=== PATIENT | female | born 1965 | race Caucasian/White ===

== ENCOUNTER 2021-02-23 06:28 | Emergency (ER) | payer OTHER ==
[~2021-02-23] VITALS: Ht 162.6 cm; Wt 59.0 kg
[2021-02-23 07:24] LABS: ABSOLUTE NEUTROPHILS 10.1 thou/uL (1.4-8.2); BASOPHILS 0.6 % (0.0-2.0); EOSINOPHILS 0.7 % (0.0-3.0); HEMATOCRIT 40.3 % (37.0-47.0); LYMPHOCYTES 11.2 % (24.0-44.0); MCH 27.4 pg (26.0-34.0); MCHC 32.3 g/dL (28.0-37.0); MCV 84.7 fL (80.0-100.0); MONOCYTES 4.4 % (1.0-8.0); PLATELET COUNT 373 thou/uL (150-400); POLYS 83.1 % (36.0-66.0); RBC 4.76 mil/uL (4.20-5.00); RDW 15.1 % (10.5-14.5); WBC 12.2 thou/uL (4.0-11.0)
[2021-02-23 07:56] LABS: URINE BILIRUBIN NEGATIVE (Negative); URINE BLOOD 1+ (Negative); URINE CLARITY SL CLOUDY; URINE COLOR YELLOW; URINE GLUCOSE-RANDOM* NEGATIVE (Negative); URINE KETONES NEGATIVE (Negative); URINE LEUKOCYTES-REFLEX NEGATIVE (Negative); URINE NITRITE-REFLEX NEGATIVE (Negative); URINE PROTEIN (DIPSTICK) NEGATIVE (Negative); URINE SPECIFIC GRAVITY >= 1.030 (1.005-1.035); URINE UROBILINOGEN 0.2 E.U./dl (0.2-1.0)
[2021-02-23 08:34] LABS: CALCIUM 8.9 mg/dL (8.5-10.1); CREATININE 1.2 mg/dL (0.6-1.0); POTASSIUM 3.7 mmol/L (3.5-5.1)
[2021-02-23 08:40] LABS: SQUAMOUS >10 Many /LPF (0-3)
[2021-02-23 08:41] LABS: CASTS None Seen /LPF (None Seen); URINE WBC-REFLEX 6-15 Few /HPF (0-5)
[2021-02-23 08:42] LABS: AMORPHOUS URATES Moderate /LPF (None Seen); BACTERIA-REFLEX 1-9 Few /HPF (None Seen); URINE RBC 1-2 Rare /HPF (NONE SEEN)
[2021-02-23 08:47] LABS: ALBUMIN 3.8 g/dL (3.4-5.0); TOTAL BILIRUBIN 0.3 mg/dL (0.2-1.0); TOTAL PROTEIN 8.7 g/dL (6.4-8.2)
[2021-02-23] MEDS ORDERED: NORCO7.5 PO (09:52)
[2021-02-23] MEDS ORDERED: FLOMAX0.4 MG PO (09:52)
[2021-02-23] MEDS ORDERED: ZOFRAN ODT4 MG PO (10:24)
[2021-02-23 10:27] VITALS: BP 142/70
== END 2021-02-23 10:31 | disposition home or self-care (01) ==
LOC: ER 06:28
PROVIDERS: Emergency Medicine
DX: N20.1 Calculus of ureter (principal); K59.00 Constipation, unspecified; R11.2 Nausea with vomiting, unspecified